=== PATIENT | female | born 1975 | race Caucasian/White ===

== ENCOUNTER 2018-05-18 07:50 | Outpatient (CLI) | payer OTHER | END 2018-05-18 07:51 | disposition home or self-care (01) | LOC: BICMAMMO 07:50 | PROVIDERS: ATTEND Nurse Practitioner Acute Care | DX: Z12.31 Encounter for screening mammogram for malignant neoplasm of breast (principal); Z80.3 Family history of malignant neoplasm of breast | CPT/HCPCS: 77063; 77067 ==

== ENCOUNTER 2019-05-24 08:02 | Outpatient (CLI) | payer BC ==
--- NOTE | 2019-05-24 08:25 | MMO ---
Bilateral MAMMO Bilat Screen [facility]. CLINICAL HISTORY: Patient is 44 years old and is seen for screening. The patient has no family history of breast cancer. The patient has no personal history of cancer. VIEWS: The views performed were: bilateral craniocaudal with tomosynthesis and bilateral mediolateral oblique with tomosynthesis. FILMS COMPARED: The present examination has been compared to prior imaging studies performed at [facility] on 05/08/2015, 05/13/2016, 05/13/2017 and 05/18/2018. This study has been interpreted with the assistance of computer-aided detection. MAMMOGRAM FINDINGS: The breasts are heterogeneously dense, which could obscure a lesion on mammography. There are no suspicious masses, suspicious calcifications, or new areas of architectural distortion. IMPRESSION: THERE IS NO MAMMOGRAPHIC EVIDENCE OF MALIGNANCY. A ROUTINE FOLLOW-UP MAMMOGRAM IN 1 YEAR IS RECOMMENDED. THE RESULTS OF THIS EXAM WERE SENT TO THE PATIENT. ACR BI-RADS Category 1 - Negative MAMMOGRAPHY NOTE: 1. A negative mammogram report should not delay a biopsy if a dominant of clinically suspicious mass is present. 2. Approximately 10% to 15% of breast cancers are not detected by mammography. 3. Adenosis and dense breasts may obscure an underlying neoplasm. Reported by: CARMEN EDGAR MD Electonically Signed: [id number]
== END 2019-05-24 08:03 | disposition home or self-care (01) ==
LOC: BICMAMMO 08:02
PROVIDERS: ATTEND Nurse Practitioner Acute Care
DX: Z12.31 Encounter for screening mammogram for malignant neoplasm of breast (principal)
CPT/HCPCS: 77063; 77067

== ENCOUNTER 2020-05-26 07:48 | Outpatient (CLI) | payer BC ==
--- NOTE | 2020-05-26 10:04 | MMO ---
Bilateral MAMMO Bilat Screen [facility]. CLINICAL HISTORY: Patient is 45 years old and is seen for screening. The patient has no family history of breast cancer. The patient has no personal history of cancer. VIEWS: The views performed were: bilateral craniocaudal with tomosynthesis and bilateral mediolateral oblique with tomosynthesis. FILMS COMPARED: The present examination has been compared to prior imaging studies performed at [facility] on 05/13/2016, 05/13/2017, 05/18/2018 and 05/24/2019. This study has been interpreted with the assistance of computer-aided detection. MAMMOGRAM FINDINGS: The breasts are heterogeneously dense, which could obscure a lesion on mammography. There are no suspicious masses, suspicious calcifications, or new areas of architectural distortion. IMPRESSION: THERE IS NO MAMMOGRAPHIC EVIDENCE OF MALIGNANCY. A ROUTINE FOLLOW-UP MAMMOGRAM IN 1 YEAR IS RECOMMENDED. THE RESULTS OF THIS EXAM WERE SENT TO THE PATIENT. ACR BI-RADS Category 1 - Negative MAMMOGRAPHY NOTE: 1. A negative mammogram report should not delay a biopsy if a dominant of clinically suspicious mass is present. 2. Approximately 10% to 15% of breast cancers are not detected by mammography. 3. Adenosis and dense breasts may obscure an underlying neoplasm. Reported by: Angel ROSA Electonically Signed: [id number]
== END 2020-05-26 07:49 | disposition home or self-care (01) ==
LOC: BICMAMMO 07:48
PROVIDERS: ATTEND Obstetrics & Gynecology
DX: Z12.31 Encounter for screening mammogram for malignant neoplasm of breast (principal)
CPT/HCPCS: 77063; 77067

== ENCOUNTER 2021-01-29 16:33 | Outpatient (CLI) | payer OTHER | END 2021-01-29 16:34 | disposition home or self-care (01) | LOC: BICRAD 16:33 | PROVIDERS: ATTEND Otolaryngology Plastic Surgery within the Head & Neck | DX: R05 Cough (principal); R06.2 Wheezing | CPT/HCPCS: 71046 ==

== ENCOUNTER 2021-06-25 07:53 | Outpatient (CLI) | payer BC, OTHER | END 2021-06-25 07:54 | disposition home or self-care (01) | LOC: BICMAMMO 07:53 | PROVIDERS: ATTEND Nurse Practitioner Acute Care | DX: Z12.31 Encounter for screening mammogram for malignant neoplasm of breast (principal) | CPT/HCPCS: 77063; 77067 ==

== ENCOUNTER 2022-07-25 08:00 | Outpatient (CLI) | payer BC | END 2022-07-25 08:01 | disposition home or self-care (01) | LOC: BICMAMMO 08:00 | PROVIDERS: ATTEND Internal Medicine | DX: Z12.31 Encounter for screening mammogram for malignant neoplasm of breast (principal) | CPT/HCPCS: 77063; 77067 ==